=== PATIENT | male | born 1995 | race Two or more races ===

== ENCOUNTER 2017-07-26 15:43 | Emergency (ER) | payer OTHER ==
[2017-07-26 15:48] VITALS: BP 141/97; PULSE 110; RESP 20; TEMP 98.4; O2SAT 96
--- NOTE | 2017-07-26 16:45 | EDPHY ---
H & P Time Seen by Provider: 07/26/17 16:28 HPI/ROS: HPI Cough and congestion. 22-year-old male by private vehicle. He complains of a dry cough, nonproductive , and nasal congestion with clear rhinorrhea for the last 2 days. Denies myalgias or arthralgias. Reports that he has felt intermittently feverish. Denies any significant sore throat. No wheezing or difficulty breathing. Reports the cough is worse at night and keeps him up. He is a student [employer]. ROS: Constitutional: As above, no chills. No weakness. Eyes: No discharge. No changes in vision. ENT: No sore throat. No nasal congestion or rhinorrhea. Respiratory: As above. No shortness of breath. Cardiac: No chest pain, no palpitations. Gastrointestinal: No abdominal pain, no vomiting, no diarrhea. Genitourinary: No hematuria. No dysuria or increased frequency with urination. Musculoskeletal: No back pain. No neck pain. No myalgias or arthralgias. Skin: No rashes. Neurological: No headache. No focal weakness or altered sensation. Past medical history: Denies any past medical history. Social history: Nonsmoker. No alcohol. Here by himself. Student [employer]. Physical Exam: General Appearance: Alert, no distress. This patient is responding to questions appropriately and in full sentences. This patient appears well- hydrated and well-nourished. Eyes: Pupils equal and round no pallor or injection. No lid edema, erythema or injection. ENT, Mouth: Mucous membranes are moist. The pharyngeal tissues are unremarkable. No edema or swelling. No asymmetry suggestive of abscess. No erythema or exudates. Respiratory: There are no retractions, lungs are clear to auscultation with good air movement bilaterally. No tachypnea. Intermittent dry cough. Cardiovascular: Regular rate and rhythm. No murmur. Neurological: Motor sensory function is grossly intact. Cranial nerves are normal. Gait is normal. Skin: Warm and dry, no rashes. Musculoskeletal: Neck is supple and nontender. No cervical, submandibular lymphadenopathy. Extremities are symmetrical. All joints range without pain or impingement. Psychiatric: No agitation. No depression. Database: EKG: Imaging: Chest x-ray PA and lateral; the cardiac mediastinal silhouette is unremarkable. No evidence of infiltrate or pneumothorax. No acute cardiopulmonary disease process noted. Interpreted by me. Procedures: Emergency department course: Vital signs reviewed. Patient is afebrile. Mildly tachycardic. Otherwise healthy male. Presentation is consistent with a viral upper respiratory infection and bronchitis. I think influenza or bacterial pneumonia is unlikely. He was treated with Tessalon Perle in the emergency department. He will be prescribed this medication on discharge. I have also recommended Robitussin cough syrup to use at night. He will follow up at the [facility] for re-evaluation tomorrow. He feels comfortable going home. Return to emergency department precautions reviewed. All of his questions were answered. He was discharged in good condition. Differential Diagnosis: The differential diagnosis on this patient includes but is not limited to bronchitis, viral upper respiratory infection. Influenza, pneumonia, serious bacterial infection unlikely. This represents a partial list of diagnoses considered. These considerations are based on history, physical exam, past history, reassessment and diagnostic testing. Smoking Status: Never smoked Constitutional: Initial Vital Signs Temperature (C) 36.9 C 07/26/17 15:45 Heart Rate 110 H 07/26/17 15:45 Respiratory Rate 20 07/26/17 15:45 Blood Pressure 141/97 H 07/26/17 15:45 O2 Sat (%) 96 07/26/17 15:45 O2 Delivery Mode Room Air Allergies/Adverse Reactions: No Known Allergies Allergy (Unverified 07/26/17 15:45) Home Medications: Medication Instructions Recorded Benzonatate [Tessalon Pearles] 100 mg PO TID #12 cap 07/26/17 Medical Decision Making - Diagnostics Imaging Results: Imaging Impressions Chest X-Ray 07/26/17 15:51 Impression: Normal chest x-ray. Departure - Departure Disposition: Home, Routine, Self-Care Clinical Impression: Upper respiratory infection, Bronchitis Condition: Good Instructions: Acute Bronchitis (ED), Upper Respiratory Infection (ED) Additional Instructions: Read and follow provided instructions. Follow-up with your primary care physician in 1-2 days for re-evaluation at the [facility]. Take medication as prescribed for cough. You can also use Robitussin cough syrup at night. I asked pharmacist about this medication. It is [id number]. Return to the emergency department for worsening cough, persistent fever, difficulty breathing or other serious concerns. Referrals: NONE *PRIMARY CARE P,. [Primary Care Provider] - As per Instructions Prescriptions: Benzonatate [Tessalon Pearles] 100 mg PO TID #12 cap
[2017-07-26] MEDS ORDERED: BENZONATATE 100 MG CAP PO ONE (16:47)
== END 2017-07-26 17:10 | disposition home or self-care (01) ==
DX: J06.9 Acute upper respiratory infection, unspecified (principal); J40 Bronchitis, not specified as acute or chronic